=== PATIENT | female | born 1990 | race African-American/Black ===

== ENCOUNTER 2018-07-01 10:22 | Emergency (ER) | payer OTHER ==
[~2018-07-01] VITALS: Ht 165.1 cm; Wt 80.0 kg
[2018-07-01] MEDS: SODIUM CHLORIDE 0.9% 1,000 ML IV ONE (11:20)
[2018-07-01 11:22] LABS: BASOPHILS % 0.3 % (0.0-2.0); EOSINOPHILS % 0.5 % (0.0-5.0); HEMATOCRIT. 41.9 % (36.0-48.0); HEMOGLOBIN. 13.8 g/dL (12.0-16.0); MEAN CORPUSCULAR HEMOGLOBIN 28.3 pg (28.0-32.0); MEAN CORPUSCULAR VOLUME 85.9 fL (81.0-99.0); MEAN PLATELET VOLUME 8.9 fl (7.4-10.4); MONOCYTES % 5.2 % (2.0-8.0); PLATELET 200 x1000/uL (130-400); RED BLOOD CELL COUNT 4.88 mill/uL (4.2-5.4); RED CELL DISTRIBUTION WIDTH 14.2 % (11.6-14.6)
[2018-07-01 11:26] LABS: CHLORIDE 109 mEq/L (98-107)
[2018-07-01 11:49] LABS: B-HCG QUANTITATIVE 2288 mIU/mL (<3)
[2018-07-01 13:22] LABS: CLARITY URINE CLOUDY (CLEAR); COLOR URINE YELLOW (YELLOW); KETONES URINE 3+ (NEGATIVE); LEUKOCYTE ESTERASE URINE NEGATIVE (NEGATIVE); NITRITE URINE NEGATIVE (NEGATIVE); OCCULT BLOOD URINE 3+ (NEGATIVE); PH URINE 5.5 (4.5-8.0); PROTEIN URINE NEGATIVE (NEGATIVE); SPECIFIC GRAVITY URINE 1.025 (1.005-1.030); UROBILINOGEN URINE 0.2 E.U./dL (0.2-1.0)
[2018-07-01] MEDS: MORPHINE SULFATE 4 MG/ML CPJ (NOT FOR IM USE) IV ONE (14:19)
[2018-07-01 15:01] VITALS: BP 112/72
== END 2018-07-01 15:02 | disposition home or self-care (01) ==
LOC: ER 10:22
DX: O00.90 Unspecified ectopic pregnancy without intrauterine pregnancy (principal); O26.90 Pregnancy related conditions, unspecified, unspecified trimester; R56.9 Unspecified convulsions; Z98.890 Other specified postprocedural states; Z3A.00 Weeks of gestation of pregnancy not specified
CPT/HCPCS: 36415; 76801; 76817; 80053; 81003; 81025; 84702; 85025; 86850; 86900; 86901; 96374; 99284; J2270; J7030; Z7610